=== PATIENT | female | born 1990 | race Caucasian/White ===

== ENCOUNTER 2016-10-16 18:52 | Emergency (ER) ==
[2016-10-16 18:58] VITALS: BP 150/90; TEMP 98; BMI 35.4
[2016-10-16] MEDS ORDERED: SODIUM CHLORIDE 1,000 ML IV STA (18:58)
[2016-10-16] MEDS ORDERED: ZOFRAN 4 MG/2 ML IVP STA (18:58)
[2016-10-16] MEDS ORDERED: PROTONIX IV IVP STA (18:58)
[2016-10-16] MEDS ORDERED: MORPHINE 4 MG/ML SYRINGE IVP STA (18:58)
[2016-10-16] MEDS ORDERED: MORPHINE 4 MG/ML SYRINGE IM STA (19:44)
[2016-10-16] MEDS ORDERED: ZOFRAN 4 MG/2 ML IM STA (19:44)
[2016-10-16] MEDS ORDERED: DILAUDID 1 MG/ML SYRINGE IM STA (20:42)
[2016-10-16] MEDS ORDERED: BENTYL IM STA (20:43)
--- NOTE | 2016-10-16 20:47 | ED.PDOC ---
General ED Provider: Dr. DANNI ALEX Chief Complaint: Nausea/Vomiting Stated Complaint: Patient is a 26 year old female who comes to the Er with vomiting for two hours 2 week she had a fecal translant for C Diff. Time Seen by Physician: 20:44 Mode of Arrival: Walk-In Information Source: Patient Exam Limitations: No limitations Primary Care Provider: ALESHIA LEE Nursing and Triage Documentation Reviewed and Agree: Yes GI Complaint Exam - Abdominal Pain Complaint/Exam Onset: Gradual Duration: 1 day Symptoms Are: Still present Timing: Constant Initial Severity: Moderate Current Severity: Moderate Location of Pain: Diffuse Aggravating: Reports: Food Associated Signs and Symptoms: Reports: Nausea, Vomiting, Diarrhea Review of Systems - Review Of Systems Constitutional: Reports: No symptoms Eyes: Reports: No symptoms Ears, Nose, Mouth, Throat: Reports: No symptoms Respiratory: Reports: No symptoms Cardiac: Reports: No symptoms GI: Reports: Abdominal pain, Diarrhea, Nausea, Poor fluid intake, Vomiting : Reports: No symptoms Musculoskeletal: Reports: No symptoms Skin: Reports: No symptoms Neurological: Reports: Anxiety All Other Systems: Reviewed and Negative Past Medical History - Past Medical History Endocrine: Reports: None Cardiovascular: Reports: None Respiratory: Reports: None Hematological: Reports: None Gastrointestinal: Reports: Other (C diff ) Genitourinary: Reports: None, Unknown Neuro/Psych: Reports: None Musculoskeletal: Reports: None Cancer: Reports: None Last Menstrual Period: ON - Surgical History General Surgical History: Reports: None - Family History Family History: Reports: None - Social History Smoking Status: Never smoker Hx Substance Use: No Alcohol Screening: None - Immunizations Tetanus Shot up to Date: Yes Physical Exam - Physical Exam Appearance: Ill-appearing, Obese Ill-appearing: Moderate Pain Distress: Severe Neck: Supple Respiratory: Airway patent, Breath sounds clear, Breath sounds equal, Respirations nonlabored Cardiovascular: RRR, Pulses normal, No rub, No murmur GI/: Tender Musculoskeletal: Normal strength, ROM intact, No edema, No calf tenderness Skin: Warm, Dry, Normal color Neurological: Sensation intact, Motor intact, Alert, Oriented Psychiatric: Anxious Critical Care Note - Critical Care Note Total Time (mins): 10 Course - Course Hematology/Chemistry: 10/16/16 21:20 10/16/16 21:20 Orders, Labs, Meds: Lab Review 10/16/16 21:20 WBC 9.16 RBC 4.38 Hgb 13.6 Hct 39.9 MCV 91.1 MCH 31.1 H MCHC 34.1 RDW Coeff of Osmel 13.2 Plt Count 175 Immature Gran % (Auto) 0.2 Neut % (Auto) 86.4 Lymph % (Auto) 9.9 L Kidder % (Auto) 3.3 Eos % (Auto) 0.0 Baso % (Auto) 0.2 Immature Gran # (Auto) 0.0 Neut # 7.9 H Lymph # 0.9 Kidder # 0.3 L Eos # 0.0 Baso # 0.0 Sodium 142 Potassium 3.3 L Chloride 110 H Carbon Dioxide 19 L Anion Gap 16.3 BUN 7 Creatinine 0.66 Estimated GFR (MDRD) 107.00 BUN/Creatinine Ratio 10.60 Glucose 135 H Calcium 9.2 Total Bilirubin 0.57 AST 14 L ALT 17 Alkaline Phosphatase 57 Total Protein 7.3 Albumin 3.9 Globulin 3.4 Albumin/Globulin Ratio 1.15 Amylase 128 H Lipase 9 Serum , Qual Negative Orders Category Date Time Status ED IV/MEDIPORT/POWERPORT .ONCE EMERGENCY 10/16/16 18:58 Inactive AMYLASE Stat LAB 10/16/16 21:20 Completed CBC W/ AUTO DIFF Stat LAB 10/16/16 21:20 Completed COMPREHENSIVE METABOLIC PANEL Stat LAB 10/16/16 21:20 Completed HCG QUALITATIVE [SERUM ] Stat LAB 10/16/16 21:20 Completed LIPASE Stat LAB 10/16/16 21:20 Completed Dicyclomine Inj [Bentyl] MEDS 10/16/16 20:43 Discontinued 20 mg IM ONCE STA Hydromorphone HCl [Dilaudid 1 mg/ml Syringe] MEDS 10/16/16 20:42 Discontinued 1 mg IM ONCE STA Metoclopramide HCl [Reglan] MEDS 10/16/16 21:12 Discontinued 10 mg PO ONCE STA Morphine Sulfate [Morphine 4 mg/ml Syringe] MEDS 10/16/16 19:44 Discontinued 4 mg IM ONCE STA Ondansetron HCl/Pf [Zofran 4 mg/2 ml] MEDS 10/16/16 19:44 Discontinued 4 mg IM ONCE STA CT ABD/PEL WO RENAL STONE PROT Stat RADS 10/16/16 18:58 Completed Medications Discontinued Medications Generic Name Dose Route Start Last Admin Trade Name Freq PRN Reason Stop Dose Admin Dicyclomine HCl 20 mg 10/16/16 20:43 10/16/16 20:51 Bentyl IM 10/16/16 20:44 20 mg ONCE STA Administration Hydromorphone HCl 1 mg 10/16/16 20:42 10/16/16 20:52 Dilaudid 1 Mg/Ml Syringe IM 10/16/16 20:43 1 mg ONCE STA Administration Metoclopramide HCl 10 mg 10/16/16 21:12 10/16/16 21:39 Reglan PO 10/16/16 21:13 10 mg ONCE STA Administration Morphine Sulfate 4 mg 10/16/16 19:44 10/16/16 19:54 Morphine 4 Mg/Ml Syringe IM 10/16/16 19:45 4 mg ONCE STA Administration Ondansetron HCl 4 mg 10/16/16 19:44 10/16/16 19:53 Zofran 4 Mg/2 Ml IM 10/16/16 19:45 4 mg ONCE STA Administration Vital Signs: Temp Pulse Resp BP Pulse Ox 10/16/16 18:53 98 F 80 24 150/90 H 99 Departure - Departure Time of Disposition: 23:04 Disposition: HOME SELF-CARE Discharge Problem: Nausea, Vomiting, Abdominal pain Instructions: Abdominal Pain (ED), Chronic Diarrhea (ED) Condition: Stable Pt referred to PMD for follow-up: Yes Additional Instructions: Follow up with your GI doctor in 3 days Take nausea medication as prescribed push fluids Prescriptions: Prochlorperazine Maleate [Compazine] 5 mg PO TID #25 tablet Allergies/Adverse Reactions: Allergies promethazine [From Phenergan] Adverse Reaction (Verified 10/16/16 19:00) Home Medications: Ambulatory Orders Sumatriptan Succinate 100 mg PO DAILY PRN 03/11/14 Prochlorperazine Maleate [Compazine] 5 mg PO TID #25 tablet 10/16/16 Disposition Discussed With: Patient
[2016-10-16] MEDS ORDERED: PHENERGAN 25 MG/ML VIAL IM STA (20:57)
[2016-10-16] MEDS ORDERED: REGLAN PO STA (21:12)
[2016-10-16 21:26] LABS: BASOPHILS % (AUTO) 0.2 % (0.0-3.0); HEMATOCRIT 39.9 % (37.0-47.0); HEMOGLOBIN 13.6 g/dl (12.0-16.0); IMMATURE GRANULOCYTE % (AUTO) 0.2 % (0.0-5.0); LYMPHOCYTES # (AUTO) 0.9 K/uL (0.60-3.4); LYMPHOCYTES % (AUTO) 9.9 (10.0-50.0); MEAN CORPUSCULAR HEMOGLOBIN 31.1 pg (27.0-31.0); MEAN CORPUSCULAR HGB CONC 34.1 (31.8-35.4); MEAN CORPUSCULAR VOLUME 91.1 fl (81.0-99.0); MONOCYTES # (AUTO) 0.3 K/uL (0.4-2.0); MONOCYTES % (AUTO) 3.3 (0-10); NEUTROPHILS # (AUTO) 7.9 K/ul (2.0-6.9); NEUTROPHILS % (AUTO) 86.4; PLATELET COUNT 175 10^3/uL (140-440); RED BLOOD COUNT 4.38 10^6/ul (4.20-5.40); WHITE BLOOD COUNT 9.16 K/ul (4.6-10.2)
[2016-10-16 21:34] LABS: SERUM PREGNANCY INTERNAL QC INTERNAL QC VALID
[2016-10-16 21:46] LABS: ALBUMIN 3.9 g/dL (3.4-5.0); ALBUMIN/GLOBULIN RATIO 1.15; ANION GAP 16.3; BILIRUBIN,TOTAL 0.57 mg/dL (0.00-1.20); BUN/CREATININE RATIO 10.6; CALCIUM 9.2 mg/dL (8.2-10.2); CREATININE 0.66 mg/dL (0.60-1.30); POTASSIUM 3.3 mmol/L (3.5-5.10); TOTAL PROTEIN 7.3 g/dL (6.4-8.2)
--- NOTE | 2016-10-16 22:12 | CT ---
EXAM: CT abdomen pelvis without contrast. TECHNIQUE: Helical axial CT of the abdomen pelvis was performed without contrast with coronal and s agittal reconstructions. COMPARISON: CT pelvis from 09/01/2016 HISTORY: Abdominal pain FINDINGS: Previously noted edema in the pelvis has resolved. There is no free air free fluid or [place] wel wall thickening or edema. The bilateral kidneys are normal with no hydronephrosis or kidney sto monica. There are no ureteral stones. Again seen is a malpositioned intrauterine device which is stab le. There is no pathologic adenopathy. There is no obstruction or ileus. The liver, spleen, pancreas, adrenal glands and lung bases are unremarkable. There has been prior c holecystectomy. There is no acute osseous abnormality. IMPRESSION: 1. No evidence for renal stone or hydronephrosis. 2. Malpositioned intrauterine device.
== END 2016-10-16 23:15 | disposition home or self-care (01) ==
LOC: ED 18:52
DX: R11.2 Nausea with vomiting, unspecified (principal); R10.9 Unspecified abdominal pain; R19.7 Diarrhea, unspecified; Z98.890 Other specified postprocedural states
CPT/HCPCS: 36415; 74176; 80053; 82150; 83690; 84703; 85025; 96372; 99283

== ENCOUNTER 2017-05-10 14:14 | Emergency (ER) ==
[2017-05-10 14:14] VITALS: BMI 35.4
[2017-05-10 14:20] VITALS: BP 112/72; TEMP 98.4
== END 2017-05-10 16:26 | disposition left against medical advice (07) ==
LOC: ED 14:14
DX: R39.9 Unspecified symptoms and signs involving the genitourinary system (principal); M54.9 Dorsalgia, unspecified

== ENCOUNTER 2017-06-02 12:55 | Observation (INO) ==
[2017-06-02] MEDS ORDERED: SODIUM CHLORIDE 1,000 ML IV STA (13:15)
[2017-06-02] MEDS ORDERED: ZOFRAN 4 MG/2 ML IVP STA (13:15)
[2017-06-02] MEDS ORDERED: PEPCID IVP STA (13:16)
[2017-06-02] MEDS ORDERED: DILAUDID 1 MG/ML SYRINGE IVP STA (13:22)
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
--- NOTE | 2017-06-02 14:54 | CT ---
EXAM: CT of the abdomen pelvis with and without contrast History: Nausea, right lower quadrant and right upper quadrant abdominal pain. Comparison: CT abdomen pelvis 10/17/2016 Technique: Multiplanar CT images through the abdomen pelvis were obtained with and without the admin istration of IV contrast Findings: Lung bases are clear. No acute osseous abnormalities. Status post cholecystectomy. No renal stones and no hydronephrosis. The appendix is normal. No ure teral calculi. Stable abnormally low position of the intrauterine device within the cervix. No focal liver or splenic lesions. The pancreas is within normal limits. Adrenal glands are unremar kable. No renal masses. No dilated loops of bowel. No free air. No ascites. No bladder wall thic kening. Mild colonic diverticulosis. There is mild duncan colonic wall thickening with adjacent hypere finesse. The colon is not well distended. Impression: 1. Mild pancolonic wall thickening could be due to the underdistended state or a mild colitis. Ther e is no bowel obstruction. 2. Mild colonic diverticulosis. 3. Normal appendix. 4. Stable abnormal low position of the intrauterine device within the cervix.
[2017-06-02] MEDS ORDERED: ATIVAN IVP STA (17:29)
[2017-06-02] MEDS ORDERED: [UNRECOGNIZED DRUG - MIXTURE] IV STA (18:32)
[2017-06-02] MEDS ORDERED: ATIVAN IM STA (18:33)
[2017-06-02] MEDS: DILAUDID 1 MG/ML SYRINGE IVP PRN (20:00)
[2017-06-02] MEDS ORDERED: POTASSIUM CHLORIDE 20 MEQ VIAL-ADDITIVE ONLY IV ONE ×2 (20:54→21:08)
[2017-06-02] MEDS: ZOFRAN 4 MG/2 ML IVP PRN (21:14)
[2017-06-02 21:59] VITALS: BMI 34.4
[2017-06-02] MEDS: ATIVAN IVP SCH (23:05)
[2017-06-03] MEDS: DILAUDID 1 MG/ML SYRINGE IVP PRN ×3 (02:07→11:16)
[2017-06-03] MEDS: ZOFRAN 4 MG/2 ML IVP PRN (02:11)
[2017-06-03] MEDS ORDERED: POTASSIUM CHLORIDE 20 MEQ VIAL-ADDITIVE ONLY IV ONE (05:06)
[2017-06-03] MEDS: ATIVAN IVP SCH (05:14)
[2017-06-03] MEDS ORDERED: D5%-1/2NS-KCL 40 MEQ/L IV SOL 1,000 ML IV SCH (06:30)
[2017-06-03] MEDS: ATIVAN PO SCH ×2 (11:58→18:00)
[2017-06-03 17:48] VITALS: BP 115/73; TEMP 97.6
--- NOTE | 2017-06-10 13:50 | DS ---
PATIENT IDENTIFICATION: 26 year old female presented to the emergency room at [place] because of upper and midabdominal pain since about midnight with nausea and vomiting. She described both symptoms as repetitive. The abdominal pain has persisted prompting the emergency room visit. HOSPITAL COURSE: The patient was given at the Emergency room 20mg of Pepcid intervenously and 0.5mg of Dilaudid and 1mg of Lorazepam. Zofran 4mg intervenously also was instituted. Normal saline 1,000cc bolus was given. The patient on admission was continue on Hydromorphone 1mg Q 4 hours IV PRN with Lorazepam 1.5mg intervenously Q 6 hours and was later changed to PO Q 6 hours. IV was later changed to Dextrose 5% and 1.5 saline plus 40KLC at 83cc per hour. The patient remained afebrile accept on admission. Her blood pressure was more or less lower normal since admission to the floor at 7:48pm. The patient however had no symptoms with regards to her lower blood pressure. The initial blood pressure that was high maybe due to the pain. Her respiratory rate had remained the 20 at the beginning and did decrease down to 16 and remained at 16. Her oxygen saturation at room air was anywhere between 98 to 99%. The patient's vital signs at 5:47pm 06/03/17 showed a temperature of 97.6, pulse 95, blood pressure 115/73, respiratory rate 16 and oxygen saturation 98%. The patient was brought to the emergency room since her primary provider mentioned about a chlamydial infection in the past with the similar symptoms. So the patient was then brought to the emergency room for examination. The patient is advised of what is to come. The patient in a Lithotomy position was then draped for the procedure and speculum was inserted and the cervix was identified. A cervical swab was done and submitted for testing for Chlamydia as well as gonorrhoea by nuclear amplification. Both of those are negative. The patient also denied any abdominal pain at that time and wanted to go home. The patient's examined also revealed an alerted individual who is not in any distress with good color. LUNGS: Clear to auscultation HEART: Audible and regular with good tones ABDOMEN: No remarkably tenderness. No guarding. Bowel sounds are active RECTAL: Unremarkably, Hemoccult was ordered. A repeat CBC showed normal WBC 9,030, hgb and hct below normal probably due to hydration. No stool sample was obtained since the patient had not had any bowel movement since admission and also had no episode of vomiting. She denied any abdominal pain at the time of discharge. This was instructed very specifically to see her primary provider as soon as possible. New medication was prescribed at the time of discharge except she has to resume her previous medications. FINAL DIAGNOSES: 1. Acute gastroenteritis, resolved cause undetermined 2. History of Clostridium difficile colitis 3. Markedly elevated BMI 4. History of Cholecystectomy 5. Tonsillectomy PLAN: 1. See Mamta Cardenas for followup. [facility]
--- NOTE | 2017-07-08 14:45 | HP ---
CHIEF COMPLAINT: Abdominal pain. SOURCE OF HISTORY: Patient and notes from the emergency room, nurse, triage and MD. HISTORY OF PRESENT ILLNESS: The patient claimed to have begun experiencing abdominal pain with nausea and vomiting and the above symptoms were recurrent. The pain had persisted prompting presentation to the emergency room and was seen at 12:58 p.m. on 06/02/2017. The patient was evaluated by the emergency room physician and he felt that maybe this patient would require admission. I did go to the emergency room to see the patient because of the abdominal pain. On examination of the patient, she claimed that she has this repeated abdominal pain and had been admitted to a [facility] for at least 14 times. Admissions lasting anywhere between 3 days to 7 or 8 days. The patient had tenderness in the abdomen, but no muscular guarding and the bowel sounds were active. A CT scan of the abdomen showed no free air, but with some thickening of the colonic mucosa. The patient had a previous diagnosis of clostridium difficile colitis that had persisted for months and had been to a GI doctor. The patient consented to admission and was then admitted to my service. PAST PERSONAL HISTORY: The patient claimed to have had clostridium difficile colitis for the last five or six months and had been to the GI doctor in [place] and had problems and difficult to diagnose or treat. She had been in contact with her family provider, Mamta Cardenas and that she was going to be referred to [place] for further diagnosis and treatment of her clostridium difficile. She also had history of headaches and anxiety. She had previous cholecystectomy and tonsillectomy. She had ovarian cyst removed. FAMILY HISTORY: Mother had hypertension, as well as heart problems. Family history of diabetes mellitus in the maternal side. Grandfather had myocardial infarction and father had malignancy. Daughter had hypothyroidism. SOCIAL HISTORY: The patient is single with young children. Her children are being kept by her mother at this time. She never did smoke any cigarettes or use any tobacco products and no alcoholic beverages. MEDICATIONS: Prior to this admission. Clonazepam 0.5 mg tablet daily as needed. ALLERGIES: Promethazine. REVIEW OF SYSTEMS: CONSTITUTIONAL: The patient denies any fever or chills, but is fatigued because of the nausea and vomiting, plus abdominal pain. BOXING INSTRUCTOR: The patient denies any severe headaches, syncope or seizure disorder. VISUAL: Denies any double vision, blurred vision or transient loss of vision. AUDITORY: The patient's hearing is adequate. She denies any dizziness, tinnitus , pain or drainage. RESPIRATORY: The patient has no significant cough. CARDIOVASCULAR: Denies any chest pain or chest tightness. GASTROINTESTINAL: The patient had been experiencing abdominal pain more in the upper abdomen with nausea and vomiting. 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 GENITOURINARY: She denies any pain on urination. ENDOCRINE: Negative. INTEGUMENT: Denies any rash or pruritus. HEMATOLOGIC: No history of prolonged bleeding. PSYCHIATRIC: Affect appears normal and cooperative. 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 The patient claimed to have had anywhere between 14 to 15 admissions to a hospital in [place] because of abdominal pain. The patient does not appear to be any respiratory distress or any other distress otherwise. The patient was given Dilaudid at the emergency room. VITAL SIGNS: At the emergency room on presentation was temperature 99.5, pulse 79, blood pressure 156/93, respiratory rate 22, oxygen saturation 96 at room air. 5'9", 230 pounds. HEAD: Unremarkable. FACE: Symmetrical and equal with no facial weakness. No remarkable tenderness to palpation in the frontal or maxillary sinus areas under pressure. EYES: Pupils equal/reactive to light about 3 mm in size and round. Conjunctivae not pale. Sclerae not icteric. MOUTH: Unremarkable. THROAT: No inflammation, tumors or exudate. NECK: No masses. No bruit. No tenderness. No rigidity. CHEST: Symmetrical and equal with good expansion with no remarkable tenderness. LUNGS: Breath sounds are heard in both sides. No rales or wheezing. HEART: Audible and regular with good tones. No murmurs. ABDOMEN: Protuberant, pendulous with tenderness in the upper abdomen mostly with voluntary guarding. Bowel sounds are active. No bruit. EXTERNAL GENITALIA: Not examined. PELIVC AND RECTAL: Not performed. LOWER EXTREMITIES: Symmetrical and equal with no significant edema. No tenderness in the calf muscles. UPPER EXTREMITIES: Symmetrical and equal. CT scan of the abdomen and pelvis without contrast showed mild pancolonic wall thickening could be due to underdistended state of the colon or mild colitis. Normal appendix. No other acute abnormalities noted. CBC- minimal leukocytosis 11,450 WBC. BUN 6, creatinine 0.66, E GFR 107.00. Blood sugar 129. Procalcitonin less than 0.05. Serum test negative. ASSESSMENT: 1. ACUTE GASTROENTERITIS, ETIOLOGY UNDETERMINED 2. HISTORY OF CLOSTRIDIUM DIFFICILE COLITIS 3. HISTORY OF REPEATED HOSPITALIZATIONS BECAUSE OF RECURRENT ABDOMINAL PAIN 4. HISTORY OF CHLAMYDIAL INFECTION ACCORDING TO THE PRIMARY PROVIDER 5. MARKEDLY ELEVATED BMI OF 34 6. HISTORY OF ANXIETY ON KLONOPIN MTDD
== END 2017-06-03 18:30 | disposition home or self-care (01) ==
LOC: ED 12:55 → MEDSURG A 18:30
PROVIDERS: ADMIT General Practice; ATTEND General Practice
DX: K52.9 Noninfective gastroenteritis and colitis, unspecified (principal); E66.9 Obesity, unspecified; Z86.19 Personal history of other infectious and parasitic diseases; Z90.49 Acquired absence of other specified parts of digestive tract
CPT/HCPCS: 36415; 80053; 81001; 83036; 84145; 84703; 85025; 87800; 96361; 96374; 96375; 96376; 99217; 99220; 99284; 99285

== ENCOUNTER 2017-06-04 10:30 | Emergency (ER) ==
[2017-06-04 10:38] VITALS: BP 182/101; TEMP 98.7; BMI 34.0
[2017-06-04] MEDS ORDERED: BENTYL IM STA (10:47)
[2017-06-04] MEDS ORDERED: ZOFRAN 4 MG/2 ML IVP STA (10:47)
[2017-06-04] MEDS ORDERED: TORADOL IVP STA (10:47)
--- NOTE | 2017-06-04 10:51 | ED.PDOC ---
General ED Provider: Dr. DANNI ALEX Chief Complaint: Abdominal Pain Stated Complaint: Patient was dicharged from the hosptial yesteray with abdominal pain. Had a negative workup done yesterday. she was sent home with no pain medicationas. Thought she was told she had a stomach infection but was not placed on antibiotics. Time Seen by Physician: 10:49 Mode of Arrival: Walk-In Information Source: Patient Exam Limitations: No limitations Primary Care Provider: ALESHIA LEE Nursing and Triage Documentation Reviewed and Agree: Yes Reviewed sepsis parameters & appropriate labs ordered?: No System Inflammatory Response Syndrome: Not Applicable Sepsis Protocol: For patient's 13 years and over: Temp is 96.8 and below OR 101 and greater Pulse >90 BPM Resp >20/minute Acutely Altered Mental Status Are patient's symptoms suggestive of a new infection, such as: -Pneumonia -Skin, Soft Tissue -Endocarditis -UTI -Bone, Joint Infection -Implantable Device -Acute Abdominal Infection -Wound Infection -Meningitis -Blood Stream Catheter Infection -Unknown System Inflammatory Response Syndrome: Not Applicable Review of Systems - Review Of Systems Constitutional: Reports: No symptoms Eyes: Reports: No symptoms Ears, Nose, Mouth, Throat: Reports: No symptoms Respiratory: Reports: No symptoms Cardiac: Reports: No symptoms GI: Reports: Abdominal pain : Reports: No symptoms Musculoskeletal: Reports: No symptoms Skin: Reports: No symptoms Neurological: Reports: Anxiety Endocrine: Reports: No symptoms Hematologic/Lymphatic: Reports: No symptoms All Other Systems: Reviewed and Negative Past Medical History - Past Medical History Endocrine: Reports: None Cardiovascular: Reports: None Respiratory: Reports: None Hematological: Reports: None Gastrointestinal: Reports: Other (C diff ) Genitourinary: Reports: None Neuro/Psych: Reports: None Musculoskeletal: Reports: None Cancer: Reports: None Last Menstrual Period: finished 2 days ago - Surgical History General Surgical History: Reports: None - Family History Family History: Reports: None - Social History Smoking Status: Never smoker Hx Substance Use: No Alcohol Screening: None Physical Exam - Physical Exam Appearance: Ill-appearing, Obese Ill-appearing: Mild Pain Distress: Moderate Neck: Supple Respiratory: Airway patent, Breath sounds clear, Breath sounds equal, Respirations nonlabored Cardiovascular: RRR GI/: Soft, No masses, Bowel sounds normal, No Organomegaly, Tender (very mild ) Musculoskeletal: Normal strength, ROM intact, No edema, No calf tenderness Skin: Warm, Dry, Normal color Neurological: Sensation intact, Motor intact, Reflexes intact, Cranial nerves intact, Alert, Oriented Re-Evaluation - Re-Evaluation Time of Re-Evaluation: 13:34 Status: Improved Critical Care Note - Critical Care Note Total Time (mins): 0 Course - Course Hematology/Chemistry: 06/04/17 10:55 06/04/17 10:55 Orders, Labs, Meds: Lab Review 06/04/17 06/04/17 06/04/17 10:55 10:55 12:28 WBC 13.34 H RBC 4.45 Hgb 14.2 Hct 41.7 D MCV 93.7 MCH 31.9 H MCHC 34.1 RDW Coeff of Osmel 12.5 Plt Count 191 Immature Gran % (Auto) 0.4 Neut % (Auto) 82.5 Lymph % (Auto) 12.1 [place] % (Auto) 4.2 Eos % (Auto) 0.4 Baso % (Auto) 0.4 Immature Gran # (Auto) 0.1 Neut # 11.0 H Lymph # 1.6 [place] # 0.6 Eos # 0.1 Baso # 0.1 Sodium 140 Potassium 3.5 Chloride 106 Carbon Dioxide 22 Anion Gap 15.5 BUN 6 L Creatinine 0.67 Estimated GFR (MDRD) 105.00 BUN/Creatinine Ratio 8.95 Glucose 100 Calcium 8.9 Total Bilirubin 0.8 AST 15 ALT 15 Alkaline Phosphatase 57 Total Protein 6.4 Albumin 3.4 Globulin 3.0 Albumin/Globulin Ratio 1.13 Amylase 82 Lipase 14 Urine Color Urine Clarity Urine pH Ur Specific Pel[place] Urine Protein Urine Glucose (UA) Urine Ketones Urine Blood Urine Nitrite Urine Bilirubin Urine Urobilinogen Ur Leukocyte Esterase Ur Squamous Epith Cells Amorphous Sediment Urine Opiates Screen Negative Ur Oxycodone Screen Negative Urine Methadone Screen Negative Ur Propoxyphene Screen Negative Ur Barbiturates Screen Negative U Tricyclic Antidepress Negative Ur Phencyclidine Scrn Negative Ur Amphetamine Screen Negative U Methamphetamines Scrn Negative U Benzodiazepines Scrn Positive Urine Cocaine Screen Negative U Cannabinoids Screen Positive Plasma/Serum Alcohol < 10.0 06/04/17 12:28 WBC RBC Hgb Hct MCV MCH MCHC RDW Coeff of Osmel Plt Count Immature Gran % (Auto) Neut % (Auto) Lymph % (Auto) [place] % (Auto) Eos % (Auto) Baso % (Auto) Immature Gran # (Auto) Neut # Lymph # [place] # Eos # Baso # Sodium Potassium Chloride Carbon Dioxide Anion Gap BUN Creatinine Estimated GFR (MDRD) BUN/Creatinine Ratio Glucose Calcium Total Bilirubin AST ALT Alkaline Phosphatase Total Protein Albumin Globulin Albumin/Globulin Ratio Amylase Lipase Urine Color Light Urine Clarity Turbid Urine pH >=9.0 Ur Specific Pelican 1.015 Urine Protein Trace Urine Glucose (UA) Negative Urine Ketones 3+ Urine Blood Negative Urine Nitrite Negative Urine Bilirubin Negative Urine Urobilinogen 0.2 Ur Leukocyte Esterase 1+ Ur Squamous Epith Cells 10-20 Amorphous Sediment 3+ Urine Opiates Screen Ur Oxycodone Screen Urine Methadone Screen Ur Propoxyphene Screen Ur Barbiturates Screen U Tricyclic Antidepress Ur Phencyclidine Scrn Ur Amphetamine Screen U Methamphetamines Scrn U Benzodiazepines Scrn Urine Cocaine Screen U Cannabinoids Screen Plasma/Serum Alcohol Orders Category Date Time Status ED IV/MEDIPORT/POWERPORT .ONCE EMERGENCY 06/04/17 10:47 Active AMYLASE Stat LAB 06/04/17 10:55 Completed BLOOD ALCOHOL Stat LAB 06/04/17 10:55 Completed CBC W/ AUTO DIFF Stat LAB 06/04/17 10:55 Completed COMPREHENSIVE METABOLIC PANEL Stat LAB 06/04/17 10:55 Completed DRUG SCREEN, URINE, RAPID Stat LAB 06/04/17 12:28 Completed LIPASE Stat LAB 06/04/17 10:55 Completed UA [URINALYSIS C & S IF INDICATED] Stat LAB 06/04/17 12:28 Completed 0.9 % Sodium Chloride [Saline Flush] MEDS 06/04/17 10:47 Discontinued 1 syr IVF PRN PRN Dicyclomine Inj [Bentyl] MEDS 06/04/17 10:47 Discontinued 20 mg IM ONCE STA Ketorolac Tromethamine [Toradol] MEDS 06/04/17 10:47 Discontinued 30 mg IVP ONCE STA Nalbuphine HCl [Nubain] MEDS 06/04/17 12:49 Discontinued 10 mg IVP ONCE STA Ondansetron HCl/Pf [Zofran 4 mg/2 ml] MEDS 06/04/17 10:47 Discontinued 4 mg IVP ONCE STA Medications Discontinued Medications Generic Name Dose Route Start Last Admin Trade Name Freq PRN Reason Stop Dose Admin Dicyclomine HCl 20 mg 06/04/17 10:47 06/04/17 11:24 Bentyl IM 06/04/17 10:48 20 mg ONCE STA Administration Ketorolac Tromethamine 30 mg 06/04/17 10:47 06/04/17 11:09 Toradol IVP 06/04/17 10:48 30 mg ONCE STA Administration Nalbuphine HCl 10 mg 06/04/17 12:49 06/04/17 13:00 Nubain IVP 06/04/17 12:50 10 mg ONCE STA Administration Ondansetron HCl 4 mg 06/04/17 10:47 06/04/17 11:08 Zofran 4 Mg/2 Ml IVP 06/04/17 10:48 4 mg ONCE STA Administration Sodium Chloride 1 syr 06/04/17 10:47 06/04/17 11:07 Saline Flush IVF 1 syr PRN PRN Administration To flush IV Vital Signs: Temp Pulse Resp BP Pulse Ox 06/04/17 10:31 98.7 F 77 20 182/101 H 99 Departure - Departure Time of Disposition: 13:34 Disposition: HOME SELF-CARE Discharge Problem: Abdominal pain Instructions: Abdominal Pain (ED) Condition: Stable Pt referred to PMD for follow-up: Yes IPMP verified?: Yes (previously used narcotics last year ) Additional Instructions: Push fluids Follow up with PCP in 2 days Take Medications and Nausea medications needed. Prescriptions: Dicyclomine HCl [Bentyl] 10 mg PO TID PRN #20 capsule PRN Reason: Abdominal Pain Ondansetron HCl [Zofran Tab] 4 mg PO Q8H PRN #14 tablet PRN Reason: Nausea / Vomiting Tramadol HCl [Ultram] 50 mg PO Q6H PRN #14 tablet PRN Reason: Severe Pain Allergies/Adverse Reactions: Allergies promethazine [From Phenergan] Adverse Reaction (Verified 06/04/17 10:39) Home Medications: Ambulatory Orders Clonazepam [Klonopin] 0.5 mg PO DAILY PRN 05/10/17 Dicyclomine HCl [Bentyl] 10 mg PO TID PRN #20 capsule 06/04/17 Ondansetron HCl [Zofran Tab] 4 mg PO Q8H PRN #14 tablet 06/04/17 Tramadol HCl [Ultram] 50 mg PO Q6H PRN #14 tablet 06/04/17 Disposition Discussed With: Patient
[2017-06-04] MEDS ORDERED: NUBAIN IVP STA (12:49)
[2017-06-04] MEDS ORDERED: NUBAIN IM STA (12:49)
== END 2017-06-04 14:41 | disposition home or self-care (01) ==
LOC: ED 10:30
DX: R10.9 Unspecified abdominal pain (principal); Z79.899 Other long term (current) drug therapy
CPT/HCPCS: 36415; 80053; 80306; 80307; 81001; 82150; 83690; 85025; 96372; 96374; 96375; 99283

== ENCOUNTER 2017-07-11 07:15 | Emergency (ER) ==
[2017-07-11] MEDS ORDERED: ZOFRAN 4 MG/2 ML IM STA ×2 (07:25→09:27)
[2017-07-11] MEDS ORDERED: MORPHINE 2 MG/ML SYRINGE IM STA (07:25)
[2017-07-11 07:26] VITALS: TEMP 97.9; BMI 30.1
[2017-07-11] MEDS ORDERED: TORADOL IM STA (08:05)
[2017-07-11] MEDS ORDERED: TORADOL ONE (08:07)
--- NOTE | 2017-07-11 08:43 | DI ---
EXAM: CHEST FRONTAL AND LATERAL VIEWS HISTORY: Cough. COMPARISON: 08/12/2016 FINDINGS: Heart size and mediastinal contour remain within normal limits. There are scattered calc ifications suggesting old granulomatous disease. No acute infiltrates are seen. No vascular congest ion. There is no consolidation, visible pleural fluid or pneumothorax. Bones reveal no acute fractur e. IMPRESSION: No acute cardiopulmonary process.
--- NOTE | 2017-07-11 08:55 | CT ---
EXAM: CT ABDOMEN AND PELVIS HISTORY: Abdominal pain, C difficile positive status post colonoscopy TECHNIQUE: CT abdomen and pelvis without intravenous contrast. Images were reconstructed using 5 mm section thickness. Reformations were prepared. COMPARISON: 06/02/2017 FINDINGS: Diagnostic limitations exist without including contrast enhanced images. No focal hepatic or splenic lesions. Gallbladder is absent. No definite pancreatic pathology. There is no adrenal mass. Kidn eys have normal appearance. No evidence of ureteral obstruction. Normal abdominal aorta. Stomach is decompressed. Normal appendix. Bowel gas pattern is nonobstructive. There is no convinci ng evidence of active enterocolitis. Low-lying intrauterine device is stable. Urinary bladder is un remarkable. There is no ascites. No ventral hernia. Bones reveal no acute abnormality. Lung bases are free of acute infiltrate. No pneumoperitoneum. IMPRESSION: 1. No distinct current CT evidence of active enterocolitis. No free air. No ascites. Normal append ix. 2. Stable low lying intrauterine device.
[2017-07-11] MEDS ORDERED: DILAUDID 1 MG/ML SYRINGE IVP STA (09:15)
--- NOTE | 2017-07-11 09:17 | ED.PDOC ---
General ED Provider: Dr. CHRISTINE CRUZ Chief Complaint: Abdominal Pain Stated Complaint: abdominal pain Time Seen by Physician: 07:25 (seen with chasity at all times ) Mode of Arrival: Wheelchair Information Source: Patient Exam Limitations: No limitations Primary Care Provider: ALESHIA LEE Nursing and Triage Documentation Reviewed and Agree: Yes Reviewed sepsis parameters & appropriate labs ordered?: Yes System Inflammatory Response Syndrome: Not Applicable Sepsis Protocol: For patient's 13 years and over: Temp is 96.8 and below OR 101 and greater Pulse >90 BPM Resp >20/minute Acutely Altered Mental Status Are patient's symptoms suggestive of a new infection, such as: -Pneumonia -Skin, Soft Tissue -Endocarditis -UTI -Bone, Joint Infection -Implantable Device -Acute Abdominal Infection -Wound Infection -Meningitis -Blood Stream Catheter Infection -Unknown System Inflammatory Response Syndrome: Not Applicable (s/p colonscopy last week c diff postive) GI Complaint Exam - Abdominal Pain Complaint/Exam Onset: Gradual Duration: 1 day Symptoms Are: Still present Timing: Constant Initial Severity: Severe Current Severity: Severe Location of Pain: Diffuse Character: Reports: Cramping Aggravating: Reports: Movement, Food, Position Alleviating: Reports: None Associated Signs and Symptoms: Reports: Nausea, Vomiting. Denies: Diaphoresis, Fever, Cough, Chest pain, Dizziness, Back pain, Constipation, Blood in stool, Dysuria, Urinary frequency, Decreased urine output, Decreased appetite, Vaginal bleeding, Vaginal discharge, Diarrhea, Sore throat, Decreased activity Related History: Reports: Similar episode AAA Risk Factors: Reports: None Cardiac Risk Factors: Reports: None Ectopic Risk Factors: Reports: None Ovarian Torsion Risk Factors: Reports: None Surgical Obstruction Risk Factors: Reports: None Related Surgical History: Reports: None Patient Rh Status: Unknown Abdominal Findings: Present: None Review of Systems - Review Of Systems Constitutional: Reports: No symptoms Eyes: Reports: No symptoms Ears, Nose, Mouth, Throat: Reports: No symptoms Respiratory: Reports: No symptoms Cardiac: Reports: No symptoms GI: Reports: Abdominal pain, Nausea, Vomiting : Reports: No symptoms Musculoskeletal: Reports: No symptoms Skin: Reports: No symptoms Neurological: Reports: No symptoms Endocrine: Reports: No symptoms Hematologic/Lymphatic: Reports: No symptoms All Other Systems: Reviewed and Negative Past Medical History - Past Medical History Previously Healthy: Yes Endocrine: Reports: None Cardiovascular: Reports: None Respiratory: Reports: None Hematological: Reports: None Gastrointestinal: Reports: Other (C diff ) Genitourinary: Reports: None Neuro/Psych: Reports: None Musculoskeletal: Reports: None Cancer: Reports: None Last Menstrual Period: 06/23/17 - Surgical History General Surgical History: Reports: None - Family History Family History: Reports: None - Social History Smoking Status: Never smoker Hx Substance Use: No Alcohol Screening: None Physical Exam - Physical Exam Appearance: Ill-appearing Ill-appearing: Moderate Pain Distress: Moderate Eyes: BARRY, EOMI, Conjunctiva clear ENT: Ears normal, Nose normal, Oropharynx normal Respiratory: Airway patent, Breath sounds clear, Breath sounds equal, Respirations nonlabored Cardiovascular: RRR, Pulses normal, No rub, No murmur GI/: Soft, Nontender, No masses, Bowel sounds normal, No Organomegaly Musculoskeletal: Normal strength, ROM intact, No edema, No calf tenderness Skin: Warm, Dry, Normal color Neurological: Sensation intact, Motor intact, Reflexes intact, Cranial nerves intact, Alert, Oriented Psychiatric: Affect appropriate, Mood appropriate Interpretation - Radiology Interpretation Radiology Interpretation By: Radiologist Radiology Results: Negative Exam Interpreted: CXR Critical Care Note - Critical Care Note Total Time (mins): 0 Course - Course Hematology/Chemistry: 07/11/17 07:40 07/11/17 07:40 Orders, Labs, Meds: Lab Review 07/11/17 07/11/17 07/11/17 07:40 07:40 07:40 WBC 11.40 H RBC 4.52 Hgb 14.3 Hct 42.3 MCV 93.6 MCH 31.6 H MCHC 33.8 RDW Coeff of Osmel 12.6 Plt Count 178 Immature Gran % (Auto) 0.5 Neut % (Auto) 75.8 Lymph % (Auto) 16.8 [place] % (Auto) 5.9 Eos % (Auto) 0.6 Baso % (Auto) 0.4 Immature Gran # (Auto) 0.1 Neut # (Auto) 8.7 H Lymph # (Auto) 1.9 [place] # (Auto) 0.7 Eos # (Auto) 0.1 Baso # (Auto) 0.0 Sodium 141 Potassium 4.0 Chloride 107 Carbon Dioxide 22 Anion Gap 16.0 BUN 10 Creatinine 0.71 Estimated GFR (MDRD) 98.00 BUN/Creatinine Ratio 14.08 Glucose 107 Calcium 9.4 Total Bilirubin 0.6 AST 13 L ALT 15 Alkaline Phosphatase 54 Total Protein 7.1 Albumin 3.7 Globulin 3.4 Albumin/Globulin Ratio 1.09 Amylase 50 Lipase 12 Serum , Qual Negative Orders Category Date Time Status AMYLASE Stat LAB 07/11/17 07:40 Completed CBC W/ AUTO DIFF Stat LAB 07/11/17 07:40 Completed COMPREHENSIVE METABOLIC PANEL Stat LAB 07/11/17 07:40 Completed LIPASE Stat LAB 07/11/17 07:40 Completed SERUM Stat LAB 07/11/17 07:40 Completed URINALYSIS C & S IF INDICATED Stat LAB 07/11/17 07:24 Uncollected Hydromorphone HCl [Dilaudid 1 mg/ml Syringe] MEDS 07/11/17 09:15 Stat 1 mg IVP ONCE STA Ketorolac Tromethamine [Toradol] MEDS 07/11/17 08:07 Discontinued 60 mg .ROUTE .STK-MED ONE Ketorolac Tromethamine [Toradol] MEDS 07/11/17 08:05 Discontinued 60 mg IM ONCE STA Morphine Sulfate [Morphine 2 mg/ml Syringe] MEDS 07/11/17 07:25 Discontinued 4 mg IM ONCE STA Ondansetron HCl/Pf [Zofran 4 mg/2 ml] MEDS 07/11/17 07:25 Discontinued 4 mg IM ONCE STA CHEST, 2 VIEWS PA & LAT Stat RADS 07/11/17 07:[address] ABDOMEN/PELVIS WO CONTRAST Stat RADS 07/11/17 07:24 Completed Medications Generic Name Dose Route Start Last Admin Trade Name Freq PRN Reason Stop Dose Admin Hydromorphone HCl 1 mg 07/11/17 09:15 Dilaudid 1 Mg/Ml Syringe IVP 07/11/17 09:16 ONCE STA Discontinued Medications Generic Name Dose Route Start Last Admin Trade Name Freq PRN Reason Stop Dose Admin Ketorolac Tromethamine 60 mg 07/11/17 08:05 07/11/17 08:10 Toradol IM 07/11/17 08:06 60 mg ONCE STA Administration Morphine Sulfate 4 mg 07/11/17 07:25 07/11/17 07:35 Morphine 2 Mg/Ml Syringe IM 07/11/17 07:26 4 mg ONCE STA Administration Ondansetron HCl 4 mg 07/11/17 07:25 07/11/17 07:34 Zofran 4 Mg/2 Ml IM 07/11/17 07:26 4 mg ONCE STA Administration Vital Signs: Temp Pulse Resp BP Pulse Ox 07/11/17 07:20 97.9 F 96 H 20 152/99 H 97 Departure - Departure Time of Disposition: 10:00 Disposition: HOME SELF-CARE Discharge Problem: Abdominal pain Instructions: Abdominal Pain (ED), Acute Abdominal Pain (DC) Condition: Good Pt referred to PMD for follow-up: Yes IPMP verified?: No Additional Instructions: Please call your Family Physician as soon as possible to schedule a follow-up appointment. Allergies/Adverse Reactions: Allergies promethazine [From Phenergan] Adverse Reaction (Verified 07/11/17 07:28) Home Medications: Ambulatory Orders Clonazepam [Klonopin] 0.5 mg PO DAILY PRN 05/10/17 Dicyclomine HCl [Bentyl] 10 mg PO TID PRN #20 capsule 06/04/17 Disposition Discussed With: Patient
[2017-07-11] MEDS ORDERED: DILAUDID 1 MG/ML SYRINGE IM STA (09:18)
[2017-07-11 09:57] VITALS: BP 142/89
== END 2017-07-11 09:54 | disposition home or self-care (01) ==
LOC: ED 07:15
DX: R10.84 Generalized abdominal pain (principal); R11.2 Nausea with vomiting, unspecified
CPT/HCPCS: 36415; 80053; 82150; 83690; 84703; 85025; 96372; 99284